=== PATIENT | male | born 1990 | race American Indian/Alaskan Native ===

== ENCOUNTER 2019-08-08 18:44 | Emergency (ER) | payer SELFPAY ==
[2019-08-08 19:26] VITALS: BP 126/66
[2019-08-08] MEDS ORDERED: ACETAMINOPHEN W/CODEINE 300-30 MG TAB PO ONE (20:12)
--- NOTE | 2019-08-08 20:16 | Emergency Department Report ---
ED General Adult HPI - General Chief complaint: Abdominal Pain Stated complaint: RT SIDE PAINFUL/BODYACHES Time Seen by Provider: 08/08/19 20:02 Source: patient Mode of arrival: Ambulatory Limitations: No Limitations - History of Present Illness Initial comments: This is a 28-year-old smoker who presents the ED complaining of right lower rib pain x2 days. Patient states that pain is localized to the right lower rib and painful to touch and painful with deep breaths in and out. Patient also states that he is a every day smoker and coughs once in a while but has not been sick recently. Patient denies fever/chills/nausea vomiting/abdominal pain/shortness of breath/trauma or physical abuse of fight. - Related Data Previous Rx's Medication Instructions Recorded Last Taken Type Benzonatate [Tessalon Perles] 100 mg PO Q8HR #20 capsule 08/08/19 Unknown Rx Naproxen [Naprosyn] 500 mg PO BID #20 tablet 08/08/19 Unknown Rx ED Review of Systems ROS: Stated complaint: RT SIDE PAINFUL/BODYACHES Other details as noted in HPI Comment: All other systems reviewed and negative ED Past Medical Hx - Past Medical History Previous Medical History?: No - Surgical History Past Surgical History?: No - Social History Smoking Status: Current Every Day Smoker Substance Use Type: None - Medications Home Medications: Home Medications Medication Instructions Recorded Confirmed Last Taken Type Benzonatate [Tessalon Perles] 100 mg PO Q8HR #20 capsule 08/08/19 Unknown Rx Naproxen [Naprosyn] 500 mg PO BID #20 tablet 08/08/19 Unknown Rx ED Physical Exam - General Limitations: No Limitations General appearance: alert, in no apparent distress - Head Head exam: Present: atraumatic, normocephalic - Eye Eye exam: Present: normal appearance - ENT ENT exam: Present: mucous membranes moist - Neck Neck exam: Present: normal inspection - Respiratory Respiratory exam: Present: normal lung sounds bilaterally. Absent: respiratory distress - Cardiovascular Cardiovascular Exam: Present: regular rate, normal rhythm. Absent: systolic murmur, diastolic murmur, rubs, gallop - GI/Abdominal GI/Abdominal exam: Present: soft, normal bowel sounds - Rectal Rectal exam: Present: deferred - Extremities Exam Extremities exam: Present: normal inspection - Back Exam Back exam: Present: normal inspection - Neurological Exam Neurological exam: Present: alert, oriented X3 - Psychiatric Psychiatric exam: Present: normal affect, normal mood - Skin Skin exam: Present: warm, dry, intact, normal color. Absent: rash ED Course Vital Signs 08/08/19 08/08/19 19:21 20:18 Temperature 98.6 F Pulse Rate 88 Respiratory 16 16 Rate Blood Pressure 126/66 O2 Sat by Pulse 100 Oximetry ED Medical Decision Making - Radiology Data Radiology results: report reviewed, image reviewed Fluoro Time In Minutes: Rib series-6 total views INDICATION: right lower rib pain x 2days. COMPARISON: None. IMPRESSION: No acute osseous or soft tissue abnormality. Clear lungs with normal heart size. Signer Name: Devendra Montalvo MD Signed: 08/08/2019 8:36 PM Workstation Name: [id number] Transcribed By: CHEYANNE Dictated By: Devendra Montalvo MD Electronically Authenticated By: Devendra Montalvo MD Signed Date/Time: 08/08/192035 - Medical Decision Making This 28-year-old male presents with right lower rib pain. Patient received pain medication in the ED. Rib detail x-rays shows no acute bony abnormality or long abnormalities. Discussed with patient smoking cessation and follow-up with her primary care physician. Discussed pain medication and heat application 3 times a day. Vital signs are normal patient saturation at 100 patient is in no respiratory distress. Patient discharged with instructions to follow-up on smoking cessation advised Critical care attestation.: If time is entered above; I have spent that time in minutes in the direct care of this critically ill patient, excluding procedure time. ED Disposition Clinical Impression: Rib pain on right side, Costochondral chest pain Disposition: -01 TO HOME OR SELFCARE Is pt being admited?: No Does the pt Need Aspirin: No Condition: Stable Instructions: Chest Pain (ED), Costochondritis (ED), How to Stop Smoking (ED) Additional Instructions: Make sure to follow up with the primary care physician as discussed. You have been advised to stop smoking/reduce smoking/smoking cessation class class Your x-rays were normal, no broken ribs or lung abnormality Take all your medications as you've been prescribed. If you have any worsening symptoms or develop new symptoms please return to ED immediately. Prescriptions: Naproxen [Naprosyn] 500 mg PO BID #20 tablet Benzonatate [Tessalon Perles] 100 mg PO Q8HR #20 capsule Referrals: PRIMARY CARE, [Primary Care Provider] - 3-5 Days [facility] [Outside] - 3-5 Days [facility] [Outside] - 3-5 Days Forms: Accompanied Note, Work/School Release Form(ED) Time of Disposition: 21:17
--- NOTE | 2019-08-08 20:40 | XRay Report ---
Rib series-6 total views INDICATION: right lower rib pain x 2days. COMPARISON: None. IMPRESSION: No acute osseous or soft tissue abnormality. Clear lungs with normal heart size. Signer Name: Devendra Montalvo MD Signed: 08/08/2019 8:36 PM Workstation Name: [id number]
== END 2019-08-08 21:39 | disposition home or self-care (01) ==
LOC: ED 18:44
DX: R07.81 Pleurodynia (principal); M94.0 Chondrocostal junction syndrome [Tietze]; F17.200 Nicotine dependence, unspecified, uncomplicated; Z79.899 Other long term (current) drug therapy
CPT/HCPCS: 71111; 99283